=== PATIENT | female | born 1955 | race Caucasian/White ===

== ENCOUNTER 2020-11-07 13:56 | Emergency (ER) | payer OTHER ==
[~2020-11-07] VITALS: Ht 162.6 cm; Wt 99.8 kg
[2020-11-07] MEDS ORDERED: SYNTHROID100 MCG (14:11)
[2020-11-07] MEDS ORDERED: SIMVASTATIN40 MG (14:11)
[2020-11-07] MEDS ORDERED: TAMS0.4C PO (19:08)
[2020-11-07] MEDS ORDERED: ORPHENADRINE C100 MG PO (19:08)
[2020-11-07] MEDS ORDERED: KETO10TA2 PO (19:08)
[2020-11-07] MEDS ORDERED: BACTRIM DS TAB1 EACH PO (19:10)
== END 2020-11-07 19:14 | disposition home or self-care (01) ==
LOC: ER 13:56
DX: N20.0 Calculus of kidney (principal); M54.5 Low back pain